=== PATIENT | female | born 1965 | race Caucasian/White ===

== ENCOUNTER 2022-10-21 21:44 | Emergency (ER) | payer OTHER, SELFPAY ==
[2022-10-21 21:51] VITALS: BP 167/80; PULSE 101; RESP 20; TEMP 35.8; O2SAT 98
--- NOTE | 2022-10-21 22:10 | ED.ANIMALBIT ---
HPI - Animal Bite General Chief Complaint: Animal Bite Stated Complaint: Cat Bite Time Seen by Provider: 10/21/22 21:58 History of Present Illness HPI narrative: This 57-year-old female comes in with an animal bite to her right hand. She states that her CT bit her on the right hand just prior to arrival. She does have a scratch that is not full thickness on the thenar aspect of her right hand. There is no puncture wound and no surrounding erythema. This is her pet cat and the cat is healthy and vaccinations are up-to-date. She states that her tetanus vaccination about 6 months ago. Related Data Previous Rx's Medication Instructions Recorded amoxicillin 875 mg-potassium 1 tab PO BID #20 tabs 10/21/22 clavulanate 125 mg tablet Allergies Allergy/AdvReac Type Severity Reaction Status Date / Time penicillin G Allergy Verified 10/21/22 21:54 Review of Systems Status of ROS: Reports: 10 or more systems reviewed and unremarkable except as noted in History and below Narrative: Constitutional: No fevers, no weight gain or loss. Eyes: No discharge. No vision changes. HENT: No congestion, no sore throat, no ear pain. Cardiovascular: No chest pain, no palpitations. Respiratory: No shortness of breath, no wheezes, no cough. Gastrointestinal: No abdominal pain, no vomiting, no diarrhea. Genitourinary: No dysuria, no hematuria. Musculoskeletal: Normal range of motion. Skin: No rashes, no pruritis. Cat scratch on the right hand. Neurological: No dizziness, weakness, sensory change, speech change. Endo/Heme/Allergies: No bruising or bleeding. No polydipsia. Pysch: no suicidality, no anxiety, no insomnia. All other systems reviewed and are negative. Exam Narrative: Exam Narrative: Constitutional: Well-developed, well-nourished, no acute distress. HEENT: Normocephalic, atraumatic. Neck: Normal range of motion. Nontender. Supple. Heart: Intact distal pulses. Lungs: No chest discomfort. No wheezes, rhonchi, or rales. Abdomen: Nontender. Back: Normal range of motion. Extremities: Normal range of motion. The thenar muscle area of the right hand has a superficial scratch that is about 2.5 cm long. This is not a full-thickness injury. It is not a puncture type wound. Skin: Intact. No rash. Warm. No erythema or pallor. Neurologic: No altered sensation. No weakness. Alert and oriented. Psychiatric: No suicidality. No anxiety or depression. No insomnia. Nursing notes and vitals signs are reviewed. Const: Vital Signs, click to edit/add: Vital Signs - 24 hr 10/21/22 21:51 Temperature 96.5 F L Pulse Rate [Left P ulse Oximeter] 101 H Respiratory Rate 20 Blood Pressure [Ri ght Upper Arm] 167/80 H Pulse Oximetry 98 Oxygen Delivery Me thod Room Air Course Vital Signs Vital signs: Initial Vital Signs Temperature 96.5 F L 10/21/22 21:51 Temperature Source Temporal Artery Scan 10/21/22 21:51 Pulse Rate 101 H 10/21/22 21:51 Pulse Rhythm 10/21/22 21:51 Respiratory Rate 20 10/21/22 21:51 Blood Pressure 167/80 H 10/21/22 21:51 Blood Pressure Mean 109 10/21/22 21:51 Blood Pressure Position Sitting 10/21/22 21:51 Pulse Oximetry 98 10/21/22 21:51 Oxygen Delivery Method 10/21/22 21:51 Vital Signs Temperature 96.5 F L 10/21/22 21:51 Pulse Rate 101 H 10/21/22 21:51 Respiratory Rate 20 10/21/22 21:51 Blood Pressure 167/80 H 10/21/22 21:51 Pulse Oximetry 98 10/21/22 21:51 Oxygen Delivery Method 10/21/22 21:51 Temperature 96.5 F L 10/21/22 21:51 Pulse Rate 101 H 10/21/22 21:51 Respiratory Rate 20 10/21/22 21:51 Blood Pressure 167/80 H 10/21/22 21:51 Pulse Oximetry 98 10/21/22 21:51 Oxygen Delivery Method 10/21/22 21:51 MDM - Animal Bite MDM Narrative Medical decision making narrative: This patient has a scratch on her right hand from a cats tooth. It is not a full-thickness skin wound and there was no sign of puncture so her risk for infection is less in my opinion. I did prescribe Augmentin for her and stated that it would be okay for her to watch for signs of infection including redness, warmth, swelling, and increased pain. If these symptoms do not occur she can hold this medicine. As for her tetanus status she declined in epic dated vaccination here stating that she wants to be able to this trouble snow which is forecasted to come in. The pain in her arm would make this difficult. She will follow-up with her primary physician in a few days in this regard. Discharge Plan Discharge Clinical Impression: Cat bite Patient Disposition: Home, Self-Care Condition: Unchanged Additional Instructions: Take medication if signs of infection occur. Use [id number] medicines also as needed and directed. Follow up with MD for update of tetanus vaccination. Return if worsening. Prescriptions: New amoxicillin-pot clavulanate 875-125 mg tablet 1 tab PO BID Qty: 20 0RF Stand Alone Forms: [employer] Info Instructions
== END 2022-10-21 22:28 | disposition home or self-care (01) ==
LOC: ED 22:17
PROVIDERS: Emergency Provider Emergency Medicine Emergency Medical Services
DX: S61.451A Open bite of right hand, initial encounter (principal); W55.01XA Bitten by cat, initial encounter
CPT/HCPCS: 99283; 99284